=== PATIENT | male | born 2000 | race Caucasian/White ===

== ENCOUNTER 2024-05-19 13:29 | Emergency (ER) | payer BC, SELFPAY ==
[2024-05-19 13:44] VITALS: BP 131/77; PULSE 83; RESP 16; TEMP 36.4; O2SAT 98
--- NOTE | 2024-05-19 14:31 | ED.NAVMDI ---
HPI - Nausea/Vomiting/Diarrhea General Chief complaint: Nausea/Vomiting/Diarrhea Stated complaint: Diarrhea/Shakes/Nausea Time Seen by Provider: 05/19/24 14:17 Source: patient and RN notes reviewed Mode of arrival: ambulatory Limitations: no limitations History of Present Illness HPI Narrative: Patient presents today complaining of 2 day history of vomiting and diarrhea. States the vomiting has since resolved but the diarrhea persists. Describes it as watery. Denies blood or mucus. Does report also reports some intermittent abdominal cramping after trying to eat or drink. He is able to keep down fluids. Has been drinking water and sugar free electrolyte drinks. Reports he has 5-6 episodes of diarrhea per day. States his mother and father at home also have similar symptoms. Patient works at [employer] and believes he contracted this illness there. Related Data Allergies Allergy/AdvReac Type Severity Reaction Status Date / Time No Known Allergies Allergy Verified 05/19/24 14:27 Review of Systems Review of Systems: CONSTITUTIONAL: Denies body aches, fever, chills, or sweats. EYES: Denies visual changes, redness, or discharge. ENT: Denies rhinorrhea, congestion, sore throat, or otalgia. CARDIOVASCULAR: Denies chest pain, palpitations, or edema. RESPIRATORY: Denies cough or dyspnea. GASTROINTESTINAL: Denies abdominal pain, nausea. + vomiting, diarrhea, abdominal cramping GENITOURINARY: Denies dysuria or hematuria. SKIN: Denies rash, itching, or wounds. MUSCULOSKELETAL: Denies back pain, joint pain, or myalgia. NEUROLOGIC: Denies headache, numbness, tingling, or weakness. PSYCH: Denies depression or anxiety. PMFSH Comments At time of signature, I have reviewed and agree with nursing past medical, surgical, social and family history unless otherwise noted. Please see nursing chart for further information. There is no relevant family history pertinent to the presenting complaint Exam Narrative: GENERAL: Well-appearing, well-nourished, and in no acute distress. HEAD: Normocephalic, atraumatic. EYES: EOMI. No redness or drainage. Conjunctivae normal. ENT: Mucous membranes pink and moist. Nares clear. No rhinorrhea. NECK: Normal AROM. Supple. No lymphadenopathy. CHEST: No respiratory distress. Clear to auscultation. HEART: Regular rate and rhythm. No murmur appreciated. Normal peripheral pulses. ABDOMEN: Soft, nontender, nondistended, normal active bowel sounds. EXTREMITIES: Normal range of motion. No edema. SKIN: Warm, dry, no rash. Capillary refill normal. Normal skin turgor. NEURO: No focal deficits. Alert and oriented x3. Gait steady. PSYCH: Normal affect. No signs of depression or anxiety. Course Course Level of Care: Express Care Visit Vital Signs Vital signs: Vital Signs Temperature 97.6 F 05/19/24 13:44 Pulse Rate 83 05/19/24 13:44 Respiratory Rate 16 05/19/24 13:44 Blood Pressure 131/77 05/19/24 13:44 Pulse Oximetry 98 05/19/24 13:44 Temperature 97.6 F 05/19/24 13:44 Pulse Rate 83 05/19/24 13:44 Respiratory Rate 16 05/19/24 13:44 Blood Pressure 131/77 05/19/24 13:44 Pulse Oximetry 98 05/19/24 13:44 Reviewed MDM - Nausea/Vomiting/Diarrhea MDM Narrative Medical decision making narrative: Prescription for Zofran will be sent to pharmacy for residual nausea. Patient has been instructed to switch from sugar free electrolyte drinks to once with sugar. Symptoms are likely viral and will resolve on their own. Discussed trying bland foods when he can tolerate fluids well and advancing diet as tolerated. ED precautions given. Differential Diagnosis Differential diagnosis: Likely food poisoning, gastroenteritis and dehydration Critical Care Time Critical Care Time Critical Care Time: No Discharge Plan Discharge Clinical Impression: Diarrhea Qualifiers: Diarrhea type: unspecified type Qualified Code(s): R19.7 - Diarrhea, unspecified Patient Disposition: Home, Self-Care Condition: Stable Instructions: Acute Nausea and Vomiting (ED), Acute Diarrhea (ED) Additional Instructions: Your diarrhea will likely resolve on its own. Stay hydrated with electrolyte fluids and water, switch from Sugar Free to ones with sugar. Take Zofran if needed for nausea. If you feel that you are not staying hydrated enough, please go to the ER immediately for further evaluation and treatment Your blood pressure was elevated above 120/80 today at Urgent Care. This puts you above the threshold for follow up. Please schedule a followup visit with your personal physician as soon as possible, for further evaluation and treatment. Even blood pressure exceeding 120/80 may indicate pre-hypertension. Patient Language: Tristanian Prescriptions: New ondansetron 8 mg tablet,disintegrating 8 mg PO Q4-6H PRN (Reason: nausea and vomiting) Qty: 20 0RF Follow-up/Referrals: PHYSICIAN,BUSINESS SUPPORT ASSOCIATE [Primary Care Provider] - Stand Alone Forms: Work/School Release IP Time of Disposition: 14:38
== END 2024-05-19 14:40 | disposition home or self-care (01) ==
PROVIDERS: Emergency Provider Nurse Practitioner
DX: R19.7 Diarrhea, unspecified (principal)
CPT/HCPCS: 99203; G0463